=== PATIENT | male | born 1985 | race Caucasian/White ===

== ENCOUNTER 2022-06-03 17:57 | Emergency (ER) | payer MEDICAID, SELFPAY ==
--- NOTE | ~2022-06-03 | CT_ITS ---
EXAMINATION: CT ABDOMEN AND PELVIS WITHOUT CONTRAST CLINICAL INFORMATION: Upper abdominal pain status post gastric bypass. COMPARISON: None available. TECHNIQUE: Multidetector volumetric imaging was performed from the superior aspect of the liver through the pubic symphysis. Sagittal and coronal reformatted images were obtained on the technologist's workstation. This CT examination was performed using dose optimization techniques as appropriate, variously including the following: *Automated exposure control *Adjustment of mA and/or kV according to patient size (this includes techniques or standardized protocols for targeted exams where dose is matched to indication/reason for exam; i.e. extremities or head) *Use of iterative reconstruction technique DLP: 304 mGy-cm FINDINGS: LUNG BASES: The visualized lung bases are unremarkable. LIVER, GALLBLADDER, AND BILIARY TREE: The liver is normal in size, shape, and attenuation. No focal hepatic lesion or biliary ductal dilatation is present. Cholecystectomy. Pneumobilia noted. PANCREAS: Unremarkable. SPLEEN: Unremarkable. ADRENAL GLANDS: Unremarkable. KIDNEYS AND URETERS: The kidneys are normal in size, shape, and attenuation. No hydronephrosis, hydroureter, or calculi seen. No perinephric stranding. BLADDER: Unremarkable. GASTROINTESTINAL TRACT: Gastrojejunostomy noted distally at the stomach. Nonobstructive bowel gas pattern. No dilated loops of bowel. No colonic wall thickening or inflammation. Normal appendix. No free air or free fluid. ABDOMINAL WALL: No significant hernia is appreciated. LYMPH NODES: Normal. VASCULAR: Normal caliber aorta. PELVIC VISCERA: The prostate and seminal vesicles are unremarkable. OSSEOUS STRUCTURES: No acute or suspicious osseous abnormality. CT/CT abdomen pelvis wo IV con IMPRESSION: No acute findings in the abdomen or pelvis. Gastrojejunostomy noted. No inflammatory changes. Fleischner guidelines were followed.
[2022-06-03 19:06] VITALS: BP 113/72; PULSE 70; RESP 18; TEMP 36.9; O2SAT 100; BMI 25.3
--- NOTE | 2022-06-03 19:08 | ED.GENADULT ---
HPI - General Adult General Chief complaint: Abdominal Pain <FREDY Lopez - Last Filed: 06/03/22 19:14> Stated complaint: Abdominal Pain/ after procedure in september <FREDY Lopez - Last Filed: 06/03/22 19:14> Time Seen by Provider: 06/03/22 23:13 <FREDY Lopez - Last Filed: 06/03/22 19:14> Source: patient <Primo Centeno MD - Last Filed: 06/04/22 05:07> Mode of arrival: ambulatory <Primo Centeno MD - Last Filed: 06/04/22 05:07> Limitations: no limitations <Primo Centeno MD - Last Filed: 06/04/22 05:07> History of Present Illness HPI narrative: Patient status post gastric bypass surgery 09/28 been complaining of pain in the upper abdomen for last 3 days as she with nausea and chills fatigue and decreased appetite pain gets worse after eating last bowel movement was 3 days ago patient never had similar problem in the past no history of pancreatitis/gallstones no urinary symptoms <Primo Centeno MD - Last Filed: 06/04/22 05:07> Related Data Home medications: Previous Rx's Medication Instructions Recorded ondansetron 4 mg disintegrating 4 mg PO Q6-8H PRN nausea and 06/04/22 tablet vomiting #7 tabs pantoprazole 40 mg tablet,delayed 40 mg PO DAILY #30 tabs 06/04/22 release (Protonix) <FREDY Lopez - Last Filed: 06/03/22 19:14> Allergies/adverse reactions: Allergies Allergy/AdvReac Type Severity Reaction Status Date / Time No Known Allergies Allergy Verified 06/03/22 19:10 <FREDY Lopez - Last Filed: 06/03/22 19:14> Review of Systems Review of Systems: Yes all other systems are reviewed and are negative <Primo Centeno MD - Last Filed: 06/04/22 05:07> PMFSH Social History Social History: Social History Advance Directives: No Advance Directives Information Provided: No <FREDY Lopez - Last Filed: 06/03/22 19:14> Physical Exam ED Vital Signs: Vital Signs - 24 hr 06/03/22 19:06 06/03/22 23:13 Temperature 98.5 F Pulse Rate 70 84 Respiratory Rate 18 18 Blood Pressure 113/72 106/62 Pulse Oximetry 100 98 Oxygen Delivery Method Room Air Room Air BMI result Body Mass Index 25.3 <FREDY Lopez - Last Filed: 06/03/22 19:14> Vital Signs - 24 hr 06/03/22 19:06 06/03/22 23:13 Temperature 98.5 F Pulse Rate 70 84 Respiratory Rate 18 18 Blood Pressure 113/72 106/62 Pulse Oximetry 100 98 Oxygen Delivery Method Room Air Room Air BMI result Body Mass Index 25.3 <Primo Centeno MD - Last Filed: 06/04/22 05:07> Appearance: Alert. Oriented X3. No acute distress. Eyes: No pallor/icterus ENT: Pharynx normal. Oral Mucosa moist Neck: Normal inspection. Neck supple. CVS: Normal heart rate and rhythm. Pulses normal. Respiratory: No respiratory distress. Equal air entry bilateral, no wheezing/rales/rhonchi Abdomen: Soft , tenderness at epigastric area with guarding no rebound tenderness Bowel sounds are present, no mass palpable, no CVA tenderness Skin: Skin warm and dry. Normal skin color. Normal skin turgor. Extremities: No lower extremity edema. No calf tenderness Neuro: Oriented X 3. No motor deficit. <Primo Centeno MD - Last Filed: 06/04/22 05:07> Course Course Course Narrative: This is an RME: Additional HPI, ROS, PE not included below will be deferred to primary provider. 37 year old male with PMH of pancreatitis presents to the ED with severe stomach pain, chills and fever. Patient had a whipple procedure in September of 2021. Patient reports the pain started yesterday and endorses nausea. Patient has been taking ibuprofen and TUMS for abdominal pain and denies improvement of symptoms. Denies vomiting or diarrhea. PE: Benign Plan: Labs, imaging <FREDY Lopez - Last Filed: 06/03/22 19:14> Medications Administered Discontinued Medications Generic Name Dose Route Start Last Admin Trade Name Freq PRN Reason Stop Dose Admin Al Hydroxide/Mg Hydroxide 30 ml 06/04/22 00:43 06/04/22 00:48 Magnesium Hydrox/Alum Hydrox 30 Ml Oral.Susp PO 06/04/22 00:44 30 ml ONCE ONE Administration Omeprazole 40 mg 06/04/22 00:43 06/04/22 00:49 Omeprazole 40 Mg Capsule. PO 06/04/22 00:44 40 mg ONCE ONE Administration Ondansetron HCl 4 mg 06/04/22 00:41 06/04/22 00:49 Ondansetron Odt 4 Mg Tab.Rapdis TRANSLINGU 06/04/22 00:42 4 mg ONCE ONE Administration Tramadol HCl 50 mg 06/04/22 00:41 06/04/22 00:49 Tramadol Hcl 50 Mg Tablet PO 06/04/22 00:42 50 mg ONCE ONE Administration <FREDY Lopez - Last Filed: 06/03/22 19:14> Medications Administered Discontinued Medications Generic Name Dose Route Start Last Admin Trade Name Freq PRN Reason Stop Dose Admin Al Hydroxide/Mg Hydroxide 30 ml 06/04/22 00:43 06/04/22 00:48 Magnesium Hydrox/Alum Hydrox 30 Ml Oral.Susp PO 06/04/22 00:44 30 ml ONCE ONE Administration Omeprazole 40 mg 06/04/22 00:43 06/04/22 00:49 Omeprazole 40 Mg Capsule. PO 06/04/22 00:44 40 mg ONCE ONE Administration Ondansetron HCl 4 mg 06/04/22 00:41 06/04/22 00:49 Ondansetron Odt 4 Mg Tab.Rapdis TRANSLINGU 06/04/22 00:42 4 mg ONCE ONE Administration Tramadol HCl 50 mg 06/04/22 00:41 06/04/22 00:49 Tramadol Hcl 50 Mg Tablet PO 06/04/22 00:42 50 mg ONCE ONE Administration <Primo Centeno MD - Last Filed: 06/04/22 05:07> Medical Decision Making Medical Decision Making MDM Narrative: Patient epigastric pain CT scan negative for any acute pathology likely gastritiswith nausea will discharge patient home on PPI Zofran <Primo Centeno MD - Last Filed: 06/04/22 05:07> Lab Data MDM Lab Attestation statement: I reviewed the patient's lab results. <Primo Centeno MD - Last Filed: 06/04/22 05:07> Result Diagrams: 06/03/22 21:03 06/03/22 21:03 <FREDY Lopez - Last Filed: 06/03/22 19:14> Labs: Lab Results 06/03/22 06/03/22 06/03/22 Range/Units 21:03 21:03 23:16 WBC 6.5 (4.8-10.8) X10*3/uL RBC 4.53 L (4.60-5.80) X10*6/uL Hgb 13.0 L (14.0-18.0) g/dl Hct 39.1 L (42.0-52.0) % MCV 86.3 (80.0-98.0) fL MCH 28.7 (27.0-33.0) pg MCHC 33.2 (31.0-36.0) g/dl RDW 13.8 (11.0-16.0) % Plt Count 255 (160-400) X10*3/uL MPV 9.5 (9.4-12.4) fL Immature Gran % (Auto) 0.2 (0.0-0.4) % Neut % (Auto) 42.3 L (45-73) % Lymph % (Auto) 39.6 (20-40) % [place] % (Auto) 12.5 H (2-11) % Eos % (Auto) 4.8 H (0-4) % Baso % (Auto) 0.6 (0-2) % Lymph # (Auto) 2.6 (1.2-4.9) X10*3/uL [place] # (Auto) 0.8 (0.1-1.2) X10*3/uL Eos # (Auto) 0.3 (0.0-0.4) X10*3/uL Baso # (Auto) 0.0 (0.0-0.2) X10*3/uL Abs Immat Gran (auto) 0.01 (0.00-0.03) X10*3/uL Absolute Neuts (auto) 2.7 (2.0-8.3) x10*3/uL Absolute Nucleated RBC 0.000 (0.0-0.012) X10*3/uL Nucleated RBC % (auto) 0.0 (0.0-0.2) /100WBC Sodium 142 (135-145) mmol/L Potassium 4.4 (3.3-5.1) mmol/L Chloride 102 (96-108) mmol/L Carbon Dioxide 31 H (22-29) mmol/L Anion Gap 13 (12-20) BUN 8 L (9-16) mg/dL Creatinine 0.81 (0.5-1.4) mg/dL Estim Creat Clear Calc 114.8 Estimated GFR > 60 Random Glucose 93 (60-115) mg/dL Calcium 9.4 (8.4-10.2) mg/dL Magnesium 2.1 (1.6-2.6) mg/dL Total Bilirubin 0.3 (0.0-1.0) mg/dL AST 79 H (5-37) U/L ALT 147 H (0-40) U/L Alkaline Phosphatase 115 (39-117) U/L Total Protein 7.1 (6.5-8.0) g/dL Albumin 4.4 (3.5-5.0) g/dL Lipase 38 (8-78) U/L Urine Color Yellow Urine Appearance Clear Urine pH 7.0 (5.0-9.0) Ur Specific [place] 1.015 (1.005-1.025) Urine Protein Negative (Neg-Trace) mg/dL Urine Glucose (UA) Negative (Negative) mg/dL Urine Ketones Negative (Negative) mg/dL Urine Blood Negative (Negative) Urine Nitrite Negative (Negative) Ur Leukocyte Esterase Negative (Negative) <FREDY Lopez - Last Filed: 06/03/22 19:14> Lab Results 06/03/22 06/03/22 06/03/22 Range/Units 21:03 21:03 23:16 WBC 6.5 (4.8-10.8) X10*3/uL RBC 4.53 L (4.60-5.80) X10*6/uL Hgb 13.0 L (14.0-18.0) g/dl Hct 39.1 L (42.0-52.0) % MCV 86.3 (80.0-98.0) fL MCH 28.7 (27.0-33.0) pg MCHC 33.2 (31.0-36.0) g/dl RDW 13.8 (11.0-16.0) % Plt Count 255 (160-400) X10*3/uL MPV 9.5 (9.4-12.4) fL Immature Gran % (Auto) 0.2 (0.0-0.4) % Neut % (Auto) 42.3 L (45-73) % Lymph % (Auto) 39.6 (20-40) % [place] % (Auto) 12.5 H (2-11) % Eos % (Auto) 4.8 H (0-4) % Baso % (Auto) 0.6 (0-2) % Lymph # (Auto) 2.6 (1.2-4.9) X10*3/uL [place] # (Auto) 0.8 (0.1-1.2) X10*3/uL Eos # (Auto) 0.3 (0.0-0.4) X10*3/uL Baso # (Auto) 0.0 (0.0-0.2) X10*3/uL Abs Immat Gran (auto) 0.01 (0.00-0.03) X10*3/uL Absolute Neuts (auto) 2.7 (2.0-8.3) x10*3/uL Absolute Nucleated RBC 0.000 (0.0-0.012) X10*3/uL Nucleated RBC % (auto) 0.0 (0.0-0.2) /100WBC Sodium 142 (135-145) mmol/L Potassium 4.4 (3.3-5.1) mmol/L Chloride 102 (96-108) mmol/L Carbon Dioxide 31 H (22-29) mmol/L Anion Gap 13 (12-20) BUN 8 L (9-16) mg/dL Creatinine 0.81 (0.5-1.4) mg/dL Estim Creat Clear Calc 114.8 Estimated GFR > 60 Random Glucose 93 (60-115) mg/dL Calcium 9.4 (8.4-10.2) mg/dL Magnesium 2.1 (1.6-2.6) mg/dL Total Bilirubin 0.3 (0.0-1.0) mg/dL AST 79 H (5-37) U/L ALT 147 H (0-40) U/L Alkaline Phosphatase 115 (39-117) U/L Total Protein 7.1 (6.5-8.0) g/dL Albumin 4.4 (3.5-5.0) g/dL Lipase 38 (8-78) U/L Urine Color Yellow Urine Appearance Clear Urine pH 7.0 (5.0-9.0) Ur Specific [place] 1.015 (1.005-1.025) Urine Protein Negative (Neg-Trace) mg/dL Urine Glucose (UA) Negative (Negative) mg/dL Urine Ketones Negative (Negative) mg/dL Urine Blood Negative (Negative) Urine Nitrite Negative (Negative) Ur Leukocyte Esterase Negative (Negative) <Primo Centeno MD - Last Filed: 06/04/22 05:07> Discharge Plan Discharge Clinical Impression: Acute gastritis <FREDY Lopez - Last Filed: 06/03/22 19:14> Patient Disposition: Home, Self-Care <FREDY Lopez - Last Filed: 06/03/22 19:14> Instructions: Gastritis (ED) <FREDY Lopez - Last Filed: 06/03/22 19:14> Additional Instructions: Avoid fried/ibuprofen/Advil Take Protonix daily Zofran for nausea Follow-up with PCP if not better <FREDY Lopez Last Filed: 06/03/22 19:14> Prescriptions: New ondansetron 4 mg tablet,disintegrating 4 mg PO Q6-8H PRN (Reason: nausea and vomiting) Qty: 7 0RF pantoprazole [Protonix] 40 mg tablet,delayed release (DR/EC) 40 mg PO DAILY Qty: 30 0RF <FREDY Lopez - Last Filed: 06/03/22 19:14> Interventions: ED Discharge Assessment Last Done: 06/04/22 00:52 <FREDY Lopez Last Filed: 06/03/22 19:14> Discharge Date/Time: 06/04/22 00:53 <FREDY Lopez - Last Filed: 06/03/22 19:14>
[2022-06-03 21:08] LABS: MANUAL DIFF FLAG NO
[2022-06-03 21:13] LABS: Basophils Percent Auto 0.6 % (0-2); Eosinophils Absolute Auto 0.3 X10*3/uL (0.0-0.4); Eosinophils Percent Auto 4.8 % (0-4); Hematocrit 39.1 % (42.0-52.0); Imm Gran Abs Auto 0.01 X10*3/uL (0.00-0.03); Imm Gran Pct Auto 0.2 % (0.0-0.4); Lymphocytes Absolute Auto 2.6 X10*3/uL (1.2-4.9); Lymphocytes Percent Auto 39.6 % (20-40); Mean Corpuscular HGB Conc 33.2 g/dl (31.0-36.0); Mean Corpuscular Hemoglobin 28.7 pg (27.0-33.0); Mean Corpuscular Volume 86.3 fL (80.0-98.0); Mean Platelet Volume 9.5 fL (9.4-12.4); Monocytes Absolute Auto 0.8 X10*3/uL (0.1-1.2); Monocytes Percent Auto 12.5 % (2-11); Neutrophils Absolute Auto 2.7 x10*3/uL (2.0-8.3); Neutrophils Percent Auto 42.3 % (45-73); Platelet Count 255 X10*3/uL (160-400); Red Blood Count 4.53 X10*6/uL (4.60-5.80); Red Cell Distribution Width 13.8 % (11.0-16.0); White Blood Count 6.5 X10*3/uL (4.8-10.8)
[2022-06-03 21:25] LABS: Alanine Aminotransferase 147 U/L (0-40); Albumin Level 4.4 g/dL (3.5-5.0); Alkaline Phosphatase 115 U/L (39-117); Anion Gap 13 (12-20); Aspartate Amino Transferase 79 U/L (5-37); Bilirubin Total 0.3 mg/dL (0.0-1.0); Blood Urea Nitrogen 8 mg/dL (9-16); Calcium 9.4 mg/dL (8.4-10.2); Carbon Dioxide 31 mmol/L (22-29); Chloride 102 mmol/L (96-108); Creatinine Clr Calc Pharmacy 114.8; Estimated Glomerular Filt Rate > 60; Glucose Random 93 mg/dL (60-115); Lipase 38 U/L (8-78); Magnesium 2.1 mg/dL (1.6-2.6); Potassium 4.4 mmol/L (3.3-5.1); Sodium 142 mmol/L (135-145); Total Protein 7.1 g/dL (6.5-8.0)
[2022-06-03 23:13] VITALS: BP 106/62; PULSE 84; RESP 18; O2SAT 98
[2022-06-03 23:23] LABS: Appearance Urine Clear; Color Urine Yellow; Glucose Urine UA Negative (Negative); Leukocyte Esterase Urine Negative (Negative); Nitrite Urine Negative (Negative); Specific Gravity - Urine 1.015 (1.005-1.025); Urine Blood Negative (Negative); Urine Ketones Negative (Negative); Urine Protein Negative (Neg-Trace)
[2022-06-04] MEDS: Magnesium Hydrox/Alum Hydrox 30 ML ORAL.SUSP PO (00:48)
[2022-06-04] MEDS: Ondansetron ODT 4 MG TAB.RAPDIS TRANSLINGU (00:49)
[2022-06-04] MEDS: Omeprazole 40 MG CAPSULE.DR PO (00:49)
[2022-06-04] MEDS: traMADoL HCL 50 MG TABLET PO (00:49)
== END 2022-06-04 00:53 | disposition home or self-care (01) ==
PROVIDERS: Physician Assistant; Emergency Provider Internal Medicine
DX: K29.00 Acute gastritis without bleeding (principal)
CPT/HCPCS: 36415; 74176; 80053; 81003; 83690; 83735; 85025; 99284